=== PATIENT | female | born 1985 ===

== ENCOUNTER → 2019-08-01 | Outpatient (REF) | LOC: M LAB LCGH 11:14 | PROVIDERS: ATTEND Obstetrics & Gynecology Reproductive Endocrinology | DX: E28.0 Estrogen excess (principal) ==

== ENCOUNTER → 2019-08-08 | Outpatient (REF) | LOC: M LAB LCGH 10:36 | PROVIDERS: ATTEND Obstetrics & Gynecology Reproductive Endocrinology | DX: Z00.00 Encounter for general adult medical examination without abnormal findings (principal) ==

== ENCOUNTER → 2019-08-15 | Outpatient (REF) | LOC: M LAB LCGH 10:39 | PROVIDERS: ATTEND Obstetrics & Gynecology Reproductive Endocrinology | DX: E25.9 Adrenogenital disorder, unspecified (principal) ==

== ENCOUNTER → 2019-08-22 | Outpatient (REF) | LOC: M LAB LCGH 16:03 | PROVIDERS: ATTEND Obstetrics & Gynecology Reproductive Endocrinology | DX: E28.9 Ovarian dysfunction, unspecified (principal) ==

== ENCOUNTER → 2019-08-29 | Outpatient (REF) | LOC: M LAB LCGH 11:23 | PROVIDERS: ATTEND Obstetrics & Gynecology Reproductive Endocrinology | DX: E28.9 Ovarian dysfunction, unspecified (principal) ==